=== PATIENT | female | born 1970 | race Caucasian/White ===

== ENCOUNTER 2022-06-09 14:12 | Day surgery (SDC) | payer BC ==
[2022-06-09] MEDS ORDERED: Decadron 4 MG INJ IV ONE (14:13)
[2022-06-09] MEDS ORDERED: LIDOCAINE HCL 1% 50 MG/5 ML VL PF IJ ONE (14:13)
[2022-06-09] MEDS ORDERED: Sodium Chloride 0.9(Preservative Free) 10 ML IJ ONE (14:13)
[2022-06-09] MEDS ORDERED: Lactated Ringers 1,000 ML IV ONE (17:40)
--- NOTE | 2022-06-09 20:22 | XRAY ---
Indication: Cervical SHAR. Intraoperative fluoroscopy provided for 43 seconds. 3 digital spot image submitted for interpretation demonstrates posterior needle tip projecting just posterior to cervical thoracic junction. Small amount of contrast injected for needle tip placement. Correlate with intraoperative findings/report.
--- NOTE | 2022-06-10 09:24 | XRAY ---
43 seconds of fluoroscopy was used in surgery for a cervical SHAR.
== END 2022-06-09 17:40 | disposition home or self-care (01) ==
LOC: SDC-PAIN 14:12
PROVIDERS: ATTEND Psychiatry & Neurology Pain Medicine
DX: M54.12 Radiculopathy, cervical region (principal); Z79.899 Other long term (current) drug therapy
CPT/HCPCS: 62321; 72040; 77003; J1100; J2001; Q9966